=== PATIENT | male | born 1980 | race Caucasian/White ===

== ENCOUNTER 2020-12-04 20:25 | Emergency (ER) | payer SELFPAY ==
[~2020-12-04] VITALS: Ht 170.2 cm; Wt 70.0 kg
[2020-12-04 20:39] VITALS: BP 142/90
[2020-12-05] MEDS ORDERED: IBUP-2030 MT
== END 2020-12-05 00:11 | disposition home or self-care (01) ==
LOC: ER 20:25
DX: S49.82XA Other specified injuries of left shoulder and upper arm, initial encounter (principal); V43.52XA Car driver injured in collision with other type car in traffic accident, initial encounter; Y93.89 Activity, other specified; Y92.488 Other paved roadways as the place of occurrence of the external cause
CPT/HCPCS: 73030; 73080; 99284; A4565